=== PATIENT | male | born 1985 | race African-American/Black ===

== ENCOUNTER 2022-01-06 07:55 | Day surgery (SDC) | payer OTHER ==
[2022-01-01 13:52] LABS: BASOPHILS # (AUTO) 0.1 X10'3 (0-0.2); BASOPHILS % (AUTO) 0.5 % (0-1); EOSINOPHILS # (AUTO) 0.3 X10'3 (0-0.9); EOSINOPHILS % (AUTO) 2.6 % (0-6); LYMPHOCYTES # (AUTO) 2.9 X10'3 (1.1-4.8); LYMPHOCYTES % (AUTO) 25.5 % (21-51); MEAN CORPUSCULAR HEMOGLOBIN 29.1 PG (27.0-31.0); MEAN CORPUSCULAR HGB CONC 33.1 g/dL (33.0-36.5); MEAN CORPUSCULAR VOLUME 87.9 FL (78-98); MEAN PLATELET VOLUME 7.2 FL (7.4-10.4); MONOCYTES # (AUTO) 0.8 X10'3 (0-0.9); MONOCYTES % (AUTO) 7.5 % (2-12); NEUTROPHILS # (AUTO) 7.2 X10'3 (1.8-7.7); NEUTROPHILS % (AUTO) 63.9 % (42-75); PRE OP HEMATOCRIT 45.9 % (42.0-52.0); PRE OP HEMOGLOBIN 15.2 g/dL (14.0-17.9); PRE OP PLATELET COUNT 285 X10'3 (140-440); RED BLOOD COUNT 5.22 X10'6 (4.70-6.10)
[2022-01-01 14:01] LABS: ALBUMIN 3.7 G/DL (3.4-5.0); ALBUMIN/GLOBULIN RATIO 0.8 (1.1-1.5); ALKALINE PHOSPHATASE 58 IU/L (46-116); BLOOD UREA NITROGEN 21 MG/DL (7-18); CALCIUM 8.6 MG/DL (8.5-10.1); CHLORIDE 105 MMOL/L (99-107); CREATININE 1.05 MG/DL (0.60-1.10); PRE OP ALT 43 U/L (30-65); PRE OP ANION GAP 9 (8-16); PRE OP AST 16 U/L (10-37); PRE OP BILIRUB, TOTAL 0.2 MG/DL (0.0-1.0); PRE OP GLUCOSE 87 MG/DL (70-104); PRE OP POTASSIUM 3.9 MMOL/L (3.4-5.1); PRE OP SODIUM 140 MMOL/L (135-145); TOTAL CARBON DIOXIDE 26.3 MMOL/L (24-32); TOTAL PROTEIN 8.1 G/DL (6.4-8.2); eGFR > 90 ML/MIN
[~2022-01-06] VITALS: Ht 198.1 cm; Wt 133.9 kg
[2022-01-06] VITALS (8 sets, daily range): BP systolic 129–165; BP diastolic 78–99
[~2022-01-06 07:55] MED LIST: NO HOME MEDS; albuterol 2.5 MG/3 ML nebule NEB PRN
[2022-01-06] MEDS: famotidine 20mg tablet PO ONE (08:24)
[2022-01-06] MEDS: ringers solution, lacted 1,000 ML IV SCH (08:24)
[2022-01-06] MEDS ORDERED: ROPIVAcaine 0.5% (5mg/ml) 30ml vial ONE ×2 (12:39→14:13)
[2022-01-06] MEDS ORDERED: cloNIDine hcl/PF 100mcg/ml inj ONE (12:39)
[2022-01-06] MEDS ORDERED: fentaNYL/PF 50MCG/1 ML 2ML syringe ONE (12:40)
[2022-01-06] MEDS ORDERED: midazolam 1 mg/ML 2ml injection ONE (12:40)
[2022-01-06] MEDS ORDERED: propofol inj 20 ML IV ONE (12:44)
[2022-01-06] MEDS ORDERED: sevoflurane 250ml liquid IH ONE (12:46)
[2022-01-06] MEDS: ceFAZolin inj. 3,000 MG in normal saline 100ml IV soln 100 ML IV ONE (13:00)
[2022-01-06] MEDS ORDERED: proCHLORperazine 10 MG/2 ml inj IV PRN (13:55)
[2022-01-06] MEDS ORDERED: ondansetron/PF 4mg/2ml inj IV PRN (13:55)
[2022-01-06] MEDS ORDERED: ringers solution, lacted 1,000 ML IV SCH (13:55)
[2022-01-06] MEDS ORDERED: meperidine/PF 25mg/ml syringe IV PRN ×3 (13:55)
[2022-01-06] MEDS ORDERED: morphine 4 MG/ML inj SYRINge IV PRN (13:55)
[2022-01-06] MEDS ORDERED: morphine 2 MG/ML inj. syringe IV PRN (13:55)
--- NOTE | 2022-01-06 15:06 | NUR ---
Received from OR via [facility], accompanied by Anesthesiologist and report given by [facility] Anesthesiologist. PATIENT WAKING UP, DENIES PAIN, V/S WNL, PIV 20G TO LUE, RIGHT ARM CAST DRESSING CDI W/ SLING. ICE AND ELEVATED RUE. Addendum: 01/06/22 at 1538 by Balbir Peña RN Amended: Links added.
--- NOTE | 2022-01-06 16:16 | NUR ---
ALL DISCHARGE CRITERIA HAS BEEN MET. VSS, PAIN AT A TOLERABLE LEVEL, VOIDING AND ABLE TO SAFELY AMBULATE AND TRANSFER SELF. IV TAKEN OUT WITHOUT ANY COMPLICATIONS. ALL DISCHARGE INSTRUCTIONS COVERED WITH PATIENT AND ALL QUESTIONS ANSWERED. PATIENT TAKEN OUT VIA WHEELCHAIR WITH ALL BELONGINGS TO PERSONAL VEHICLE WHERE FRIEND DROVE PATIENT HOME. Addendum: 01/06/22 at 1636 by Balbir Peña RN Amended: Links added.
== END 2022-01-06 16:16 | disposition home or self-care (01) ==
LOC: PAS 07:55
PROVIDERS: ATTEND Orthopaedic Surgery
DX: M66.821 Spontaneous rupture of other tendons, right upper arm (principal); M25.511 Pain in right shoulder
CPT/HCPCS: 24342; 36415; 64415; 76942; 80053; 82948; 85025; 87811; 93005; A6223; C1713; J0690; J0735; J2250; J2704; J2795; J3010; J3490; J7030; J7120; Z7506; Z7508; Z7512; A4215; A4618; A6449; A7000